=== PATIENT | female | born 1980 | race Caucasian/White ===

== ENCOUNTER 2017-01-03 14:55 | Emergency (ER) | payer MEDICAID ==
[2017-01-03 15:13] VITALS: BP 118/82
== END 2017-01-03 17:55 | disposition home or self-care (01) ==
LOC: ED 14:55
DX: T22.212A Burn of second degree of left forearm, initial encounter (principal); T21.21XA Burn of second degree of chest wall, initial encounter; T31.0 Burns involving less than 10% of body surface; W40.8XXA Explosion of other specified explosive materials, initial encounter; Y93.89 Activity, other specified; Y92.89 Other specified places as the place of occurrence of the external cause; Y99.8 Other external cause status